=== PATIENT | female | born 1980 ===

== ENCOUNTER 2016-07-29 19:38 | Emergency (ER) | payer SELFPAY ==
[2016-07-29 19:47] VITALS: BP 151/98; PULSE 94; RESP 16; TEMP 97.8; O2SAT 100
--- NOTE | 2016-07-29 20:14 | ED PDOC ---
HPI: Headache Time Seen by Provider: 07/29/16 19:49 Chief Complaint (Nursing): Headache Chief Complaint (Provider): Headache History Per: Patient History/Exam Limitations: no limitations Onset/Duration Of Symptoms: Days (3x) Current Symptoms Are (Timing): Still Present Severity: Moderate Preceeding Symptoms: Known Migraine Symptoms Associated Symptoms: Other (dizziness) Additional Complaint(s): 35 year old female patient with a pertinent medical history of migraines presents to the ED with complaints of a posterior headache with dizziness that started 3x days ago. She had an MRI in 3 years ago which was normal. She denies having nausea, change in the position of her head, chest pain, and chest palpitations. PMD: Patient does not recall. Past Medical History Reviewed: Historical Data, Nursing Documentation, Vital Signs Vital Signs: Last Vital Signs Temp 97.8 F 07/29/16 19:43 Pulse 94 H 07/29/16 19:43 Resp 16 07/29/16 19:43 BP 151/98 H 07/29/16 19:43 Pulse Ox 100 07/29/16 19:43 - Medical History PMH: Gastritis, HTN, Migraine - Surgical History Surgical History: No Surg Hx - Family History Family History: States: Unknown Family Hx - Social History Alcohol: None Drugs: Denies - Home Medications Home Medications: Ambulatory Orders Medication Instructions Recorded Cyclobenzaprine [Flexeril] 5 mg PO TID PRN #15 tab 07/20/15 amLODIPine [Norvasc] 5 mg PO DAILY 07/20/15 hydroCHLOROthiazide [Microzide] 12.5 mg PO DAILY 07/20/15 Meclizine [Meclizine*] 25 mg PO Q8 #15 tab 07/29/16 Naproxen [Naprosyn] 500 mg PO Q12H #20 tab 07/29/16 - Allergies Allergies/Adverse Reactions: Allergies Allergy/AdvReac Type Severity Reaction Status Date / Time No Known Allergies Allergy Verified 02/06/16 13:56 Review of Systems Cardiovascular: Negative for: Chest Pain, Palpitations Gastrointestinal: Negative for: Nausea Neurological: Positive for: Headache, Dizziness. Negative for: Other (no change in head position) Physical Exam - Reviewed Nursing Documentation Reviewed: Yes Vital Signs Reviewed: Yes - Physical Exam Appears: Positive for: Well, Non-toxic, No Acute Distress Head Exam: Positive for: ATRAUMATIC, NORMOCEPHALIC Skin: Positive for: Normal Color, Warm, Dry Eye Exam: Positive for: Normal appearance Cardiovascular/Chest: Positive for: Regular Rate, Rhythm, Chest Non Tender Respiratory: Positive for: Normal Breath Sounds. Negative for: Respiratory Distress Neurologic/Psych: Positive for: Alert, Oriented (3x). Negative for: Motor/ Sensory Deficits - Laboratory Results Result Diagrams: 07/29/16 20:20 07/29/16 20:20 - ECG O2 Sat by Pulse Oximetry: 100 (RA) Pulse Ox Interpretation: Normal Medical Decision Making Medical Decision Makin:49 Initial impression: headache Initial plan: * EKG * CMP * CBC with differential * udip * antivert 25mg PO * toradol 30mg IVP * reevaluation Scribe Attestation: Documented by Zarina Quezada, acting as a scribe for Nikunj Cross MD. Provider Scribe Attestation: All medical record entries made by the Scribe were at my direction and personally dictated by me. I have reviewed the chart and agree that the record accurately reflects my personal performance of the history, physical exam, medical decision making, and the department course for this patient. I have also personally directed, reviewed, and agree with the discharge instructions and disposition. Disposition - Clinical Impression Clinical Impression: Migraine, Vertigo - Patient ED Disposition Is Patient to be Admitted: No Counseled Patient/Family Regarding: Studies Performed, Diagnosis, Need For Followup, Rx Given - Disposition Referrals: [facility] [Outside] Disposition: Routine/Home Disposition Time: 22:39 Condition: FAIR Prescriptions: Meclizine [Meclizine*] 25 mg PO Q8 #15 tab Naproxen [Naprosyn] 500 mg PO Q12H #20 tab Instructions: Migraine Headache (ED), Vertigo (ED) Print Language: ESTONIAN
[2016-07-29 20:33] LABS: BASO # 0.1 K/uL (0.0-0.2); BASO % 1.2 % (0.0-2.0); EOS # 0.2 K/uL (0.0-0.7); HEMATOCRIT 33.4 % (34.0-47.0); LYMPH # 1.9 K/uL (1.0-4.3); LYMPH % 32.2 % (20.0-40.0); MEAN CELL VOLUME 77.9 fl (81.0-99.0); MEAN CORPUSCULAR HEMOGLOBIN 24.7 pg (27.0-31.0); MEAN CORPUSCULAR HGB CONC 31.7 g/dL (33.0-37.0); MEAN PLATELET VOLUME 7.9 fl (7.2-11.7); MONO # 0.6 K/uL (0.0-0.8); MONO % 10.4 % (0.0-10.0); NEUT # 3.1 K/uL (1.8-7.0); NEUT % 53.2 % (50.0-75.0); NRBC % 0.1 % (0.0-0.0); RED CELL DISTRIBUTION WIDTH 13.8 % (11.5-14.5); WHITE BLOOD COUNT 5.7 K/uL (4.8-10.8)
[2016-07-29 22:32] LABS: ALB/GLOB RATIO 1.2 (1.0-2.1); ALKALINE PHOSPHATASE 78 U/L (38-126); ALT/SGPT 35 U/L (9-52); AST/SGOT 45 U/L (14-36); BILIRUBIN,TOTAL 0.4 mg/dl (0.2-1.3); BLOOD UREA NITROGEN 12 mg/dl (7-17); CALCIUM 8.8 mg/dL (8.4-10.2); CARBON DIOXIDE 26 mmol/L (22-30); CHLORIDE 102 mmol/L (98-107); GFR AFRICAN-AMERICAN > 60; GLUCOSE,RANDOM 102 mg/dL (65-105); POTASSIUM 3.8 MMOL/L (3.6-5.0); SODIUM 138 mmol/l (132-148)
--- NOTE | 2016-07-31 09:42 | CARD ---
APPROVED REPORT EKG Measurement Heart [id number] CT 170P41 [id number] <Conclusion> Normal sinus rhythm Possible Left atrial enlargement Prolonged QT Abnormal ECG
== END 2016-07-30 00:07 | disposition home or self-care (01) ==
LOC: H.ER 19:38
DX: G43.909 Migraine, unspecified, not intractable, without status migrainosus (principal); R42 Dizziness and giddiness
CPT/HCPCS: 80053; 81025; 85025; 93005; 96374; 99283; J1885

== ENCOUNTER 2017-03-03 21:23 | Emergency (ER) | payer OTHER, SELFPAY ==
[2017-03-03 21:45] VITALS: BP 161/111; PULSE 87; RESP 16; TEMP 98; O2SAT 100
[2017-03-03] MEDS ORDERED: DiphenhydrAMINE 50 mg/ml Inj IVP STA (22:09)
--- NOTE | 2017-03-03 22:19 | ED PDOC ---
HPI: Headache Time Seen by Provider: 03/03/17 21:47 Chief Complaint (Nursing): Dizziness/Lightheaded Chief Complaint (Provider): Headache History Per: Patient History/Exam Limitations: no limitations Current Symptoms Are (Timing): Still Present Preceeding Symptoms: Known Migraine Symptoms Associated Symptoms: Photophobia, Nausea. denies: Blurred Vision, Vomiting Additional Complaint(s): Aminata Beal, a 36 year old female, with a past medical history of gastritis, migraine headache and mild anxiety presents to the ED complaining of a bilateral temporal headache that radiates to the back of her head. The patient reports that the headache is associated with nausea, photophobia, fatigue and anxiousness. She states that her symptoms are similar to previous migraine headaches she has had in the past. Patient also notes some chest pain and epigastric pain which she attributes to her gastritis. Denies focal weakness, blurry vision, Patient has no PCP Past Medical History Reviewed: Historical Data, Nursing Documentation, Vital Signs Vital Signs: Last Vital Signs Temp 98.0 F 03/03/17 21:40 Pulse 87 03/03/17 21:40 Resp 16 03/03/17 21:40 BP 161/111 H 03/03/17 21:40 Pulse Ox 100 03/03/17 21:40 - Medical History PMH: Anxiety (mild anxiety), Gastritis, HTN, Migraine - Surgical History Surgical History: No Surg Hx - Family History Family History: States: Hypertension Other Family History: Migraine, Cardiac Disease - Social History Current smoker - smoking cessation education provided: No Ex-Smoker (has not smoked in the last 12 months): No Alcohol: None Drugs: Denies - Home Medications Home Medications: Ambulatory Orders Medication Instructions Recorded Cyclobenzaprine [Flexeril] 5 mg PO TID PRN #15 tab 07/20/15 amLODIPine [Norvasc] 5 mg PO DAILY 07/20/15 hydroCHLOROthiazide [Microzide] 12.5 mg PO DAILY 07/20/15 Meclizine [Meclizine*] 25 mg PO Q8 #15 tab 07/29/16 Naproxen [Naprosyn] 500 mg PO Q12H #20 tab 07/29/16 Ferrous Sulfate [Feosol] 325 mg PO TID #90 tab 03/03/17 Metoclopramide [Reglan] 1 tab PO TID PRN #15 tab 03/03/17 - Allergies Allergies/Adverse Reactions: Allergies Allergy/AdvReac Type Severity Reaction Status Date / Time No Known Allergies Allergy Verified 03/03/17 21:40 Review of Systems ROS Statement: Except As Marked, All Systems Reviewed And Found Negative Constitutional: Positive for: Other (fatigua) Eyes: Positive for: Other (photophobia). Negative for: Vision Change (no blurry vision) Cardiovascular: Positive for: Chest Pain Gastrointestinal: Positive for: Nausea, Abdominal Pain (epigastric pain attibuted to gastritis). Negative for: Vomiting Neurological: Positive for: Headache (b/l temporal headache radiating to the back of head). Negative for: Weakness (no focal weakness) Psych: Positive for: Anxiety Physical Exam - Reviewed Nursing Documentation Reviewed: Yes Vital Signs Reviewed: Yes - Physical Exam Appears: Positive for: Non-toxic, In Acute Distress Head Exam: Positive for: ATRAUMATIC, NORMOCEPHALIC Skin: Positive for: Warm, Dry Eye Exam: Positive for: EOMI, PERRL ENT: Negative for: Pharyngeal Erythema, Tonsillar Exudate Neck: Positive for: Painless ROM, Supple Cardiovascular/Chest: Positive for: Regular Rate, Rhythm, Chest Non Tender. Negative for: Murmur Respiratory: Positive for: Normal Breath Sounds. Negative for: Wheezing Gastrointestinal/Abdominal: Positive for: Soft. Negative for: Tenderness Back: Positive for: Normal Inspection. Negative for: Decreased ROM Extremity: Positive for: Normal ROM. Negative for: Deformity Lymphatic: Negative for: Adenopathy Neurologic/Psych: Positive for: Alert, narrow gauge engineer II-XII (grossly intact), Oriented (x3 ), Cerebellar Tests (normal finger to nose). Negative for: Motor/Sensory Deficits - Laboratory Results Result Diagrams: 03/03/17 22:25 03/03/17 22:25 Interpretation Of Abn Labs: Anemia. No emergently significant lab abnormalities - ECG O2 Sat by Pulse Oximetry: 100 (RA) Pulse Ox Interpretation: Normal Medical Decision Making Medical Decision Makin Initial Impression 36 y/o female presenting with headache and chest pain Initial Plan: * EKG * CMP * Magnesium Phosphorous * Troponin * Upreg * Udip * CBC * Benadryl 25mg IVP * Reglan 10mg IVP * Toradol 15mg IVP * Tylenol 975mg PO * Reevaluation EKG performed: * Normal sinus rhythm * Normal QRS * Normal ST segments 1130p Pt feels better. DW pt findings and plan of care. Advised to follow up in high blood pressure and anemia with clinic. Scribe Attestation Documented by Mohini Bose acting as a scribe for Caitlin Ayala MD. Provider Attestation All medical record entries made by the Scribe were at my direction and personally dictated by me. I have reviewed the chart and agree that the record accurately reflects my personal performance of the history, physical exam, medical decision making, and the department course for this patient. I have also personally directed, reviewed, and agree with the discharge instructions and disposition. Disposition - Clinical Impression Clinical Impression: Anemia, Migraine Counseled Patient/Family Regarding: Studies Performed, Diagnosis, Need For Followup, Rx Given - Disposition Referrals: [facility] [Outside] - 03/05/17 Disposition: Routine/Home Disposition Time: 23:00 Condition: IMPROVED Prescriptions: Ferrous Sulfate [Feosol] 325 mg PO TID #90 tab Metoclopramide [Reglan] 1 tab PO TID PRN #15 tab PRN Reason: Migraine Headache Instructions: Migraine Headache (ED), Anemia (ED) Forms: [facility] ED School/Work Excuse
[2017-03-03 22:58] LABS: BASO # 0.1 K/uL (0.0-0.2); BASO % 1.2 % (0.0-2.0); EOS # 0.2 K/uL (0.0-0.7); HEMATOCRIT 31.1 % (34.0-47.0); LYMPH # 1.7 K/uL (1.0-4.3); LYMPH % 31.2 % (20.0-40.0); MEAN CELL VOLUME 70.6 fl (81.0-99.0); MEAN CORPUSCULAR HEMOGLOBIN 21.9 pg (27.0-31.0); MEAN CORPUSCULAR HGB CONC 31.1 g/dL (33.0-37.0); MEAN PLATELET VOLUME 8.1 fl (7.2-11.7); MONO # 0.6 K/uL (0.0-0.8); MONO % 11.5 % (0.0-10.0); NEUT # 2.9 K/uL (1.8-7.0); NEUT % 52.1 % (50.0-75.0); RED CELL DISTRIBUTION WIDTH 15.9 % (11.5-14.5); WHITE BLOOD COUNT 5.6 K/uL (4.8-10.8)
[2017-03-03 23:08] LABS: ALB/GLOB RATIO 1.3 (1.0-2.1); ALKALINE PHOSPHATASE 71 U/L (38-126); ALT/SGPT 30 U/L (9-52); AST/SGOT 21 U/L (14-36); BILIRUBIN,TOTAL 0.2 mg/dl (0.2-1.3); BLOOD UREA NITROGEN 9 mg/dl (7-17); CALCIUM 9.3 mg/dL (8.4-10.2); CARBON DIOXIDE 24 mmol/L (22-30); CHLORIDE 105 mmol/L (98-107); GFR AFRICAN-AMERICAN > 60; GLUCOSE,RANDOM 110 mg/dL (65-105); PHOSPHOROUS 3.6 mg/dl (2.5-4.5); POTASSIUM 3.9 MMOL/L (3.6-5.0); SODIUM 141 mmol/l (132-148); TOTAL PROTEIN 7.8 G/DL (6.3-8.2)
--- NOTE | 2017-03-04 09:08 | CARD ---
APPROVED REPORT EKG Measurement Heart [id number] AR [id number] [id number] <Conclusion> Normal sinus rhythm Possible Left atrial enlargement Prolonged QT Abnormal ECG
== END 2017-03-04 00:26 | disposition home or self-care (01) ==
LOC: H.ER 21:23
DX: D64.9 Anemia, unspecified (principal); G43.909 Migraine, unspecified, not intractable, without status migrainosus; F41.9 Anxiety disorder, unspecified; I10 Essential (primary) hypertension
CPT/HCPCS: 80053; 81025; 83735; 84100; 84484; 85025; 93005; 96374; 96375; 99283; J1200; J1885; J2765